=== PATIENT | male | born 1950 | race Caucasian/White ===

== ENCOUNTER 2019-06-13 17:44 | Emergency (ER) | payer MEDICARE, SELFPAY ==
--- NOTE | ~2019-06-13 | XR_ITS ---
XR elbow LT min 3V 06/13/2019 18:55 Indication: Left elbow pain Procedure: 4 views left elbow Comparison: No prior studies for comparison. Findings: There is a nondisplaced radial head fracture. Large joint effusion. No other fracture ident ified. No foreign bodies. Impression: 1: Nondisplaced radial head fracture. 2: Large joint effusion. Reviewed, dictated and finalized at location A. [facility] Impression: 1: Nondisplaced radial head fracture. 2: Large joint effusion.
[2019-06-13 18:07] VITALS: BP 207/93; PULSE 80; RESP 16; TEMP 36.4; O2SAT 98
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
--- NOTE | 2019-06-13 19:29 | PC.NURSE ---
Pt aware of wait, was informed we had computer issues. No complaints at this time.
[2019-06-13 20:06] VITALS: BP 200/96; PULSE 76
== END 2019-06-13 20:25 | disposition home or self-care (01) ==
PROVIDERS: Emergency Provider Registered Nurse
DX: S52.125A Nondisplaced fracture of head of left radius, initial encounter for closed fracture (principal); W19.XXXA Unspecified fall, initial encounter; M25.422 Effusion, left elbow; I10 Essential (primary) hypertension; Z87.891 Personal history of nicotine dependence
CPT/HCPCS: 29105; 73080; 99214; A4565; G0463

== ENCOUNTER 2019-07-17 08:59 | Emergency (ER) | payer MEDICARE, SELFPAY ==
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
[2019-07-17 09:17] VITALS: BP 155/80; PULSE 62; RESP 16; TEMP 37; O2SAT 98
== END 2019-07-17 09:40 | disposition home or self-care (01) ==
PROVIDERS: Emergency Provider Nurse Practitioner Family
DX: H61.23 Impacted cerumen, bilateral (principal); Z87.891 Personal history of nicotine dependence; M19.90 Unspecified osteoarthritis, unspecified site; J44.9 Chronic obstructive pulmonary disease, unspecified; K21.9 Gastro-esophageal reflux disease without esophagitis
CPT/HCPCS: 69210; 99212; A9270; G0463

== ENCOUNTER 2019-09-04 09:49 | Emergency (ER) | payer MEDICARE, SELFPAY ==
[2019-09-04 10:11] VITALS: BP 168/89; PULSE 74; RESP 18; TEMP 36.8; O2SAT 100
--- NOTE | 2019-09-04 10:17 | ED.DIZZY ---
HPI - Dizziness General Chief Complaint: Dizziness Stated Complaint: dizziness Time Seen by Provider: 09/04/19 10:18 Source: patient and RN notes reviewed Mode of arrival: ambulatory Limitations: no limitations History of Present Illness HPI Narrative: This is a 69-year-old male presented office for evaluation of intermittent dizziness for 2-day. Associated with nausea, diarrhea and sinus congestion. He stated that his diarrhea likely result from eating chocolate which he has had similar episode in the past. He also report his right ear feels clogged with intermittent sinus congestion when he first wakes up in the morning. Denies fever, cough, chest pain or shortness of breathe. No Treatment prior to arrival. Denies CVA. Denies head injury. Related Data Home Medications Medication Instructions Recorded Confirmed carvedilol [Coreg] 25 mg PO BID 06/13/19 09/04/19 ipratropium-albuterol [Combivent 2 puff INHALATION Q4-5H PRN 07/17/19 09/04/19 Respimat] omeprazole 20 mg DAILY 07/17/19 09/04/19 acetaminophen-codeine 1 tablet PO Q4H PRN 09/04/19 09/04/19 [Tylenol-Codeine #3] Allergies Allergy/AdvReac Type Severity Reaction Status Date / Time ibuprofen Allergy Mild Rash Verified 09/04/19 10:05 acetaminophen Allergy Unknown Rash Verified 09/04/19 10:05 aspirin Allergy Unknown Rash Verified 09/04/19 10:05 azithromycin Allergy Unknown Unknown Verified 09/04/19 10:05 barium sulfate Allergy Unknown Unknown Verified 09/04/19 10:05 Penicillins Allergy Unknown Rash Verified 09/04/19 10:13 ESCITALOPRAM OXALATE Allergy Mild HOT, Uncoded 09/04/19 10:05 TINGLING PROPOXYPHENE NAPSYLATE Allergy Mild Unknown Uncoded 09/04/19 10:05 Review of Systems Review of Systems: Narrative: CONSTITUTIONAL: Denies fever EYES: denies visual change ENT: Denies sore throat. Reports sinus/stuffy nose with right ear clogged CARDIOVASCULAR: Denies chest pain, palpitation, edema. RESPIRATORY: Denies dyspnea, wheezing, cough GASTROINTESTINAL: Denies abdominal pain, vomiting. Reports nausea and diarrhea. GENITOURINARY: Denies urinary symptoms SKIN: Denies rash MUSCULOSKELETAL: Denies acute back pain NEUROLOGIC: Denies passing out. He drives himself here. [facility] Social History Social History Smoking status: Former smoker Tobacco type: cigarettes Alcohol intake: never Gender identity (if verbalized by the patient): Male Exam Narrative: Exam Narrative: GENERAL: This is a well-nourished, well-developed patient, in no apparent distress. HEAD: normocephalic, atraumatic. EYES: PERRL. EMOI. Sclera clear/white. Vision is grossly intact. EARS: External ears normal, auditory canals clear and without drainage, bilateral TM noted fluid level, without erythema, bulging or perforation. Hearing grossly intact. NOSE: External nose normal with no obvious nasal discharge, nares without redness, no rhinorrhea. THROAT: Mucous membranes moist, posterior pharynx clear with drainage NECK: Neck supple, non-tender without lymphadenopathy, masses or thyromegaly. CARDIOVASCULAR: Regular rate and rhythm without murmurs, gallops, or rubs. RESPIRATORY: Clear to auscultation. Breath sounds equal bilaterally. No wheezes, rales, or rhonchi. GASTROINTESTINAL: Abdomen soft, non-tender, nondistended. Bowel sounds are active. No hepato-splenomegaly, or palpable masses. No guarding. SKIN: warm, intact with no suspicious lesions or rash, good texture and turgor. NEURO: awake, alert, and oriented to person, place and time. There were no obvious focal neurologic abnormalities. Steady gait EXTREMITIES: Normal range of motion. No edema. BACK: Nontender without deformity or crepitance. No flank tenderness. [place] Coma Scale Eye Opening: Spontaneous 4 [place] Coma Scale Motor: Obeys Commands 6 D[place] Coma Scale Verbal: Oriented 5 Course Vital Signs Vital signs: Vital Signs Temperature 98.3 F 09/04/19 10:11 Pulse Rate
[2019-09-04 10:30] VITALS: BP 184/81; BP 192/85; PULSE 70; PULSE 72
[2019-09-04 10:31] VITALS: BP 163/81; PULSE 73
--- NOTE | 2019-09-04 10:31 | ECG_ITS ---
Measurements Intervals [place] Rate: 68 P: 38 [place]: 166 QRS: 9 QRSD: 99 T: 74 QT: 379 QTc: 403 Interpretive Statements SINUS RHYTHM CANNOT RULE OUT SEPTAL INFARCT, AGE INDETERMINATE BASELINE ARTIFACT- I, II, AVR ABNORMAL ECG Electronically Signed On 09-04-2019 11:41:59 CDT by Be Hansen D.O.
== END 2019-09-04 10:45 | disposition home or self-care (01) ==
PROVIDERS: Emergency Provider Nurse Practitioner; PCP Internal Medicine Gastroenterology
DX: R42 Dizziness and giddiness (principal); Z87.891 Personal history of nicotine dependence; R94.31 Abnormal electrocardiogram [ECG] [EKG]
CPT/HCPCS: 93005; 99213; G0463

== ENCOUNTER 2019-12-16 08:03 | Emergency (ER) | payer MEDICARE, SELFPAY ==
[2019-12-16 08:12] VITALS: BP 183/83; PULSE 71; RESP 18; TEMP 36.5; O2SAT 99
--- NOTE | 2019-12-16 08:45 | ED.GENADULT ---
HPI - General Adult General Chief complaint: Unspecified Stated complaint: Thrush Time Seen by Provider: 12/16/19 08:27 Source: patient and RN notes reviewed Mode of arrival: ambulatory Limitations: no limitations History of Present Illness HPI narrative: Patient presents today complaining of a 2 to 3-day history of dryness and scratchiness in the tongue and throat. Denies any additional symptoms to include shortness of breath, swallowing. He does report copious postnasal drainage. Denies any history of seasonal allergies. He has been swishing with water and has stopped using his mouthwash recently. He is a former smoker. Denies pain to the tongue or throat. MD complaint: dry throat, post nasal drip Related Data Home Medications Medication Instructions Recorded Confirmed carvedilol [Coreg] 25 mg PO BID 06/13/19 12/16/19 ipratropium-albuterol [Combivent 2 puff INHALATION Q4-5H PRN 07/17/19 12/16/19 Respimat] omeprazole 20 mg DAILY 07/17/19 12/16/19 Allergies Allergy/AdvReac Type Severity Reaction Status Date / Time ibuprofen Allergy Mild Rash Verified 09/04/19 10:05 acetaminophen Allergy Unknown Rash Verified 09/04/19 10:05 aspirin Allergy Unknown Rash Verified 09/04/19 10:05 azithromycin Allergy Unknown Unknown Verified 09/04/19 10:05 barium sulfate Allergy Unknown Unknown Verified 09/04/19 10:05 Penicillins Allergy Unknown Rash Verified 09/04/19 10:13 ESCITALOPRAM OXALATE Allergy Mild HOT, Uncoded 09/04/19 10:05 TINGLING PROPOXYPHENE NAPSYLATE Allergy Mild Unknown Uncoded 09/04/19 10:05 Review of Systems Review of Systems: Narrative: CONSTITUTIONAL: Denies body aches, fever, chills, or sweats. EYES: Denies visual changes, redness, or discharge. ENT: Denies rhinorrhea, congestion, sore throat, or otalgia. Dry, scratchy throat, post nasal drip CARDIOVASCULAR: Denies chest pain, palpitations, or edema. RESPIRATORY: Denies cough or dyspnea. GASTROINTESTINAL: Denies abdominal pain, nausea, vomiting, or diarrhea. GENITOURINARY: Denies dysuria or hematuria. SKIN: Denies rash, itching, or wounds. MUSCULOSKELETAL: Denies back pain, joint pain, or myalgia. NEUROLOGIC: Denies headache, numbness, tingling, or weakness. PSYCH: Denies depression or anxiety. PMFSH Social History Social History Smoking status: Former smoker Tobacco type: cigarettes Alcohol intake: never Gender identity (if verbalized by the patient): Male Comments At time of signature, I have reviewed and agree with nursing past medical, surgical, social and family history unless otherwise noted. Please see nursing chart for further information. There is no relevant family history pertinent to the presenting complaint Exam Narrative: Exam Narrative: GENERAL: Well-appearing, well-nourished, and in no acute distress. HEAD: Normocephalic, atraumatic. EYES: EOMI. No redness or drainage. Conjunctivae normal. ENT: Mucous membranes pink and moist. Nares clear. No rhinorrhea. TMs normal bilaterally. Throat normal with small amount of clear post nasal drainage. Uvula midline. NECK: Normal AROM. Supple. No lymphadenopathy. CHEST: No respiratory distress. Clear to auscultation. HEART: Regular rate and rhythm. No murmur appreciated. Normal peripheral pulses. MUSCULOSKELETAL: No bony tenderness. EXTREMITIES: Normal range of motion. No edema. SKIN: Warm, dry, no rash. Capillary refill normal. Normal skin turgor. NEURO: No focal deficits. Alert and oriented x3. Gait steady. PSYCH: Normal affect. No signs of depression or anxiety. Course Vital Signs Vital signs: Vital Signs Temperature 97.7 F 12/16/19 08:12 Pulse Rate 71 12/16/19 08:12 Respiratory Rate 18 12/16/19 08:12 Blood Pressure 183/83 H 12/16/19 08:12 Pulse Oximetry 99 12/16/19 08:12 Temperature 97.7 F 12/16/19 08:12 Pulse Rate 71 12/16/19 08:12 Respiratory Rate 18 12/16/19 08:12 Blood Pressure 183
== END 2019-12-16 09:07 | disposition home or self-care (01) ==
PROVIDERS: Emergency Provider Nurse Practitioner
DX: J30.89 Other allergic rhinitis (principal); Z87.891 Personal history of nicotine dependence; I10 Essential (primary) hypertension; J44.9 Chronic obstructive pulmonary disease, unspecified; K21.9 Gastro-esophageal reflux disease without esophagitis
CPT/HCPCS: 99213; G0463

== ENCOUNTER 2020-10-11 08:22 | Emergency (ER) | payer MEDICARE, SELFPAY ==
[2020-10-11 08:26] VITALS: BP 167/92; PULSE 87; RESP 16; TEMP 37.5; O2SAT 96
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
[2020-10-11] MEDS: TETANUS,DIPHTHERIA,AC PERTUSSIS ADULT (0.5 ML) BOOSTRIX IM (09:36)
[2020-10-11 09:54] VITALS: BP 133/77; PULSE 72; RESP 16; O2SAT 96
== END 2020-10-11 09:44 | disposition home or self-care (01) ==
PROVIDERS: Emergency Provider Emergency Medicine
DX: S51.851A Open bite of right forearm, initial encounter (principal); M19.90 Unspecified osteoarthritis, unspecified site; J44.9 Chronic obstructive pulmonary disease, unspecified; K21.9 Gastro-esophageal reflux disease without esophagitis; I10 Essential (primary) hypertension; I38 Endocarditis, valve unspecified; Z87.891 Personal history of nicotine dependence; Z23 Encounter for immunization; W54.0XXA Bitten by dog, initial encounter
CPT/HCPCS: 90471; 90715; 99282

== ENCOUNTER 2020-10-13 09:44 | Emergency (ER) | payer MEDICARE, SELFPAY ==
[2020-10-13 09:55] VITALS: BP 154/72; PULSE 66; RESP 16; TEMP 35.9; O2SAT 99
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
== END 2020-10-13 10:48 | disposition home or self-care (01) ==
PROVIDERS: Emergency Provider Emergency Medicine; PCP Internal Medicine Gastroenterology
DX: L08.9 Local infection of the skin and subcutaneous tissue, unspecified (principal); S51.851A Open bite of right forearm, initial encounter; W54.0XXA Bitten by dog, initial encounter; M19.90 Unspecified osteoarthritis, unspecified site; J44.9 Chronic obstructive pulmonary disease, unspecified; K21.9 Gastro-esophageal reflux disease without esophagitis; I10 Essential (primary) hypertension; F32.9 Major depressive disorder, single episode, unspecified; I38 Endocarditis, valve unspecified; Z87.891 Personal history of nicotine dependence
CPT/HCPCS: 99213; G0463

== ENCOUNTER 2021-03-18 09:48 | Emergency (ER) | payer MEDICARE, SELFPAY ==
--- NOTE | ~2021-03-18 | XR_ITS ---
EXAMINATION: XR chest 2V DATE: 03/18/2021 11:03 INDICATION: Heart palpitations TECHNIQUE: PA and lateral views of the chest are obtained. COMPARISON: None available FINDINGS: The lungs are free of acute opacities. There is no pleural effusion or pneumothorax. The ca rdiomediastinal silhouette is normal. There is moderate thoracic spondylosis. A metallic density proj ects in the left upper quadrant of the abdomen. IMPRESSION: 1. No acute cardiopulmonary abnormality. Reviewed, dictated and finalized at location A. ARY MEDIA ASSISTANT
[2021-03-18 10:20] VITALS: BP 144/78; PULSE 78; RESP 17; O2SAT 99
--- NOTE | 2021-03-18 10:20 | ECG_ITS ---
Measurements Intervals [place] Rate: 77 P: 72 UT: 204 QRS: -9 QRSD: 106 T: 73 QT: 359 QTc: 407 Interpretive Statements SINUS RHYTHM VENTRICULAR PREMATURE COMPLEX DELAYED PRECORDIAL R/S TRANSITION BASELINE ARTIFACT- I, II, AVR, AVL BORDERLINE ECG Electronically Signed On 03-18-2021 11:35:42 CLIENT RELATIONS REPRESENTATIVE by eB Hansen D.O.
[2021-03-18] MEDS: SODIUM CHLORIDE 0.9% IV 1,000 ML 999 ML IV CONT (10:35)
[2021-03-18 10:45] LABS: Basophils Absolute Auto 0.1 K/mm3 (0.0-0.1); Eosinophils Absolute Auto 0.1 K/mm3 (0-0.3); Eosinophils Percent Auto 1.2 % (0-4.4); Hematocrit 40.2 % (42.0-52.0); Hemoglobin 13.7 g/dL (14.0-18.0); Immature Granulocyte Absolute 0.01 K/mm3 (0.00-0.031); Immature Granulocyte Percent A 0.1 % (0-0.5); Lymphocytes Absolute Auto 1.77 K/mm3 (0.9-3.2); Lymphocytes Percent Auto 25.6 % (18.3-44.2); Mean Corpuscular HGB Conc 34.1 g/dl (32-36); Mean Corpuscular Hemoglobin 31.8 pg (26-34); Mean Corpuscular Volume 93.3 fl (80-100); Mean Platelet Volume 9.3 fl (7.4-10.4); Monocytes Absolute Auto 0.5 K/mm3 (0.1-0.6); Monocytes Percent Auto 7.1 % (2.6-8.5); Neutrophils Absolute Auto 4.5 K/mm3 (1.3-6.7); Platelet Count Result 336 k/mm3 (150-375); Red Blood Count 4.31 M/mm3 (4.6-6.20); Red Cell Distribution Width 12.3 % (11.5-14.5); White Blood Count 6.9 K/mm3 (4.5-10.0)
[2021-03-18 10:57] LABS: Alanine Aminotransferase 21 U/L (4-50); Albumin Level 4.6 g/dL (3.5-5.1); Alkaline Phosphatase 54 U/L (38-126); Anion Gap 8 mmol/L (8-16); Aspartate Amino Transferase 24 U/L (17-59); Bilirubin,Total 0.8 mg/dL (0.2-1.3); Blood Urea Nitrogen 10 mg/dL (9-20); Calcium 9.8 mg/dL (8.4-10.2); Carbon Dioxide 30 mmol/L (22-30); Chloride 98 mmol/L (98-107); Estimated CRCL calculation 60 ml/min; Estimated Glomerular Filt Rate > 60; Glucose 121 mg/dL (65-110); Lipase 48 U/L (23-300); Potassium 4.2 mmol/L (3.4-5.0); Sodium 136 mmol/L (137-145)
[2021-03-18 11:10] LABS: D Dimer 0.35 ug/mL (<0.48)
[2021-03-18 11:36] LABS: Add Urine Microscopic? YES; Appearance Urine Clear (Clear); Bilirubin Urine Negative (Negative); Blood Urine Negative (Negative); Color Urine Yellow (Yellow); Glucose Urine UA Negative (Negative); Ketones Urine Negative (Negative); Leukocyte Esterase Ur Negative LEU/UL (Negative); Mucus Urine Rare /lpf; Nitrate Urine Negative (Negative); Protein Urine 1+ mg/dL (Negative); RBC Urine 0-2 /hpf (0-2); Specific Grav Ur 1.014 (1.001-1.035); Squamous Epithelial Cell Urine Rare /hpf (Few); Urobilinogen Urine Negative mg/dL (<2.0); WBC Urine 0-3 /hpf
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
[2021-03-18 12:29] VITALS: BP 124/66; PULSE 67; RESP 16; O2SAT 98
== END 2021-03-18 12:16 | disposition home or self-care (01) ==
PROVIDERS: Emergency Provider Emergency Medicine; PCP Internal Medicine Gastroenterology
DX: R00.2 Palpitations (principal); J44.9 Chronic obstructive pulmonary disease, unspecified; I10 Essential (primary) hypertension; I38 Endocarditis, valve unspecified; K21.9 Gastro-esophageal reflux disease without esophagitis; M19.90 Unspecified osteoarthritis, unspecified site; Z87.891 Personal history of nicotine dependence; I49.3 Ventricular premature depolarization
CPT/HCPCS: 36415; 71046; 80053; 81001; 83690; 84443; 85025; 85380; 93005; 96360; 99283; J7030

== ENCOUNTER → 2021-04-22 08:04 | Outpatient (CLI) | payer MEDICARE, SELFPAY ==
--- NOTE | ~2021-04-22 | XR_ITS ---
EXAMINATION: XR chest 2V DATE: 04/22/2021 08:32 INDICATION: Chronic obstructive pulmonary disease. TECHNIQUE: Frontal and lateral views of the chest were obtained on 3 radiographs. COMPARISON: Chest 2 views 03/18/2021 FINDINGS: The lungs are hyperexpanded. No pneumonia, pleural effusion, or pneumothorax. The heart siz e is normal. There is a chronic radiopaque foreign body in left upper quadrant of the abdomen. There is mild chronic anterior wedging of multiple thoracic vertebral bodies. IMPRESSION: 1. Hyperexpanded lungs again seen, consistent with chronic obstructive pulmonary disease. Reviewed, dictated and finalized at location B. Y MOBILE EQUIPMENT REPAIRER IMPRESSION: 1. Hyperexpanded lungs again seen, consistent with chronic obstructive pulmonar y disease.
== END ==
LOC: EXPCRAD 08:08
PROVIDERS: PCP Internal Medicine Gastroenterology; Visit Provider Internal Medicine Gastroenterology
DX: J44.9 Chronic obstructive pulmonary disease, unspecified (principal)
CPT/HCPCS: 71046

== ENCOUNTER 2021-05-01 08:41 | Emergency (ER) | payer MEDICARE, SELFPAY ==
[2021-05-01 08:48] VITALS: BP 150/90; PULSE 87; RESP 16; TEMP 36.2; O2SAT 98
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
== END 2021-05-01 09:21 | disposition home or self-care (01) ==
PROVIDERS: Emergency Provider Nurse Practitioner
DX: H61.23 Impacted cerumen, bilateral (principal); Z87.891 Personal history of nicotine dependence; M19.90 Unspecified osteoarthritis, unspecified site; J44.9 Chronic obstructive pulmonary disease, unspecified; K21.9 Gastro-esophageal reflux disease without esophagitis; I10 Essential (primary) hypertension
CPT/HCPCS: 69210; 99212; G0463

== ENCOUNTER → 2021-07-19 02:45 | Outpatient (CLI) | payer MEDICARE, SELFPAY ==
[2021-07-19 11:37] LABS: SARS-CoV-2 RNA PCR Negative
== END ==
PROVIDERS: Visit Provider Plastic Surgery
DX: Z01.812 Encounter for preprocedural laboratory examination (principal); Z20.822 Contact with and (suspected) exposure to COVID-19
CPT/HCPCS: C9803; U0003; U0005

== ENCOUNTER → 2021-08-16 02:10 | Outpatient (CLI) | payer MEDICARE, SELFPAY ==
[2021-08-16 11:33] LABS: SARS-CoV-2 RNA PCR Negative
== END ==
PROVIDERS: Visit Provider Plastic Surgery
DX: Z01.812 Encounter for preprocedural laboratory examination (principal); Z20.822 Contact with and (suspected) exposure to COVID-19
CPT/HCPCS: C9803; U0003; U0005

== ENCOUNTER 2021-08-19 01:29 | Day surgery (SDC) | payer MEDICARE, SELFPAY ==
[2021-07-12 13:45] VITALS: BMI 28.5
--- NOTE | 2021-07-12 13:50 | PC.NURSE ---
Report to the Outpatient Waiting Room, entrance under the green pavilion located off [facility], at time 0600 on date _07/22/21 . OR Time: _729 . - You and your visitor will be asked a series of questions to screen for COVID 19 for your protection. - A mask is required within the hospital. Preoperative COVID Testing Requirements: No COVID Test needed if: (proof is required; if not received patient will have Rapid Test prior to entry) - Patient has received COVID Vaccine at least 14 days prior to procedure date or - Patient has positive COVID test result within last 90 days of surgery date. COVID TESTING 07/19/21 AT 0900 COVID Test needed if above criteria is not met If not COVID vaccinated a COVID test must be conducted within 72 hours of surgery and patient is asked to isolate self from time of testing until procedure. You will go to the [employer] [facility] for your COVID testing. The [employer] [facility] site is located at the corner of [address] [facility]. You will only be called if COVID results are positive and your surgeon may reschedule your elective surgery date. Patients may have clear liquids (water, carbonated beverages, clear teas, apple juice) until 3 hours prior to surgery with a maximum of 20 ounces. - No food from midnight until time of surgery - Infants may have breast milk until 4 hours before surgery, infant formula 6 hours prior to surgery. - Children will be allowed to drink immediately following surgery. If applicable, please bring a bottle or sippy cup to assist with drinking. Juice, water, soda, and popsicles are readily available. For infants on formula, please bring formula the day of surgery. Pacifiers are allowed. Take the following medications with a SIP of water the morning of surgery: ____CARVEDILOL, INHALER Medications to discontinue per physician NONE Date to take last dose Please no make-up, nail mohawk, hairspray, perfume, deodorant, or body powder the day of surgery. No jewelry (including any body piercings) or valuables the day of surgery, leave them at home. Please take a shower or bath the night before, or the morning of, surgery with an antibacterial soap. Wear comfortable, loose fitting clothing. Children are encouraged to wear pajamas. - Jewelry must be removed prior to entering the operating room. Rings and piercings that are not removed may be cut off. - The hospital will not accept responsibility for valuables. - Please leave all valuables, including medications, at home the day of surgery. If you are going home after surgery, a licensed yard truck driver must drive you home. - NO public transportation without another adult. - We recommend that an adult stay with you for 24 hours following discharge. - We also recommend that you do not drive, make important decision, drink alcoholic beverages, or take any drugs that were not prescribed by your health care provider for at least 24 hours after your discharge time. For Pediatric surgeries, we recommend two adults accompany the child home (only one inside the building at this time). One visitor will be allowed to accompany the patient into the hospital. Patients visitor will be instructed to remain with patient at all times or leave the building. We will allow the visitor to come back to the postoperative area when patient is ready. Follow any additional instructions given to you from your surgeon. Telephone instructions given to ___PATIENT and asked if any additional questions and then verbalized understanding. Patient advised to call surgeon office or pre surgery nurse liaison [phone] if any additional questions.
--- NOTE | 2021-08-09 09:50 | PC.NURSE ---
Report to the Outpatient Waiting Room, entrance under the green pavilion located off [facility], at time __0600 on date __08/19/21 . OR Time: . - You and your visitor will be asked a series of questions to screen for COVID 19 for your protection. - A mask is required within the hospital. Preoperative COVID Testing Requirements: No COVID Test needed if: (proof is required; if not received patient will have Rapid Test prior to entry) - Patient has received COVID Vaccine at least 14 days prior to procedure date or COVID TESTING 08/16/21 AT 0900 - Patient has positive COVID test result within last 90 days of surgery date. COVID Test needed if above criteria is not met If not COVID vaccinated a COVID test must be conducted within 72 hours of surgery and patient is asked to isolate self from time of testing until procedure. You will go to the [employer] [facility] Site for your COVID testing. The [employer] [facility] site is located at the corner of [address] [facility]. You will only be called if COVID results are positive and your surgeon may reschedule your elective surgery date. Patients may have clear liquids (water, carbonated beverages, clear teas, apple juice) until 3 hours prior to surgery with a maximum of 20 ounces. - No food from midnight until time of surgery - Infants may have breast milk until 4 hours before surgery, infant formula 6 hours prior to surgery. - Children will be allowed to drink immediately following surgery. If applicable, please bring a bottle or sippy cup to assist with drinking. Juice, water, soda, and popsicles are readily available. For infants on formula, please bring formula the day of surgery. Pacifiers are allowed. Take the following medications with a SIP of water the morning of surgery: _INHALER, CARVEDILOL Medications to discontinue per physician ____NONE Date to take last dose Please no make-up, nail english, hairspray, perfume, deodorant, or body powder the day of surgery. No jewelry (including any body piercings) or valuables the day of surgery, leave them at home. Please take a shower or bath the night before, or the morning of, surgery with an antibacterial soap. Wear comfortable, loose fitting clothing. Children are encouraged to wear pajamas. - Jewelry must be removed prior to entering the operating room. Rings and piercings that are not removed may be cut off. - The hospital will not accept responsibility for valuables. - Please leave all valuables, including medications, at home the day of surgery. If you are going home after surgery, a licensed flatbed driver must drive you home. - NO public transportation without another adult. - We recommend that an adult stay with you for 24 hours following discharge. - We also recommend that you do not drive, make important decision, drink alcoholic beverages, or take any drugs that were not prescribed by your health care provider for at least 24 hours after your discharge time. For Pediatric surgeries, we recommend two adults accompany the child home (only one inside the building at this time). One visitor will be allowed to accompany the patient into the hospital. Patients visitor will be instructed to remain with patient at all times or leave the building. We will allow the visitor to come back to the postoperative area when patient is ready. Follow any additional instructions given to you from your surgeon. Telephone instructions given to ___PATIENT and asked if any additional questions and then verbalized understanding. Patient advised to call surgeon office or pre surgery nurse liaison [phone] if any additional questions.
[2021-08-09 09:54] VITALS: BMI 26.6
--- NOTE | 2021-08-09 09:55 | PC.NURSE ---
PT STATES NO CHANGE IN HEALTH HX SINCE LAST INTERVIEW ON 07/12/21
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
[2021-08-19 06:11] VITALS: BP 155/71; PULSE 74; RESP 16; TEMP 36.8; O2SAT 97
--- NOTE | 2021-08-19 06:12 | SUR.PREOP ---
While giving patient instructions to change into hospital gown he became angry, said he's not doing that and walked out. Patient did not allow me to discuss why this was necessary.
--- NOTE | 2021-08-19 06:29 | SUR.PREOP ---
Patient seen driving away from hospital. Notified Dr Ibarra and case cancelled.
== END 2021-08-19 06:38 | disposition home or self-care (01) ==
PROVIDERS: PCP Internal Medicine Gastroenterology; Visit Provider Plastic Surgery
DX: C44.311 Basal cell carcinoma of skin of nose (principal); Z53.20 Procedure and treatment not carried out because of patient's decision for unspecified reasons
CPT/HCPCS: 99211; G0463